=== PATIENT | female | born 1960 | race Caucasian/White ===

== ENCOUNTER → 2016-06-08 17:14 | Outpatient (CLI) | payer BC | END | disposition home or self-care (01) | LOC: D.MAMMO 13:30 | DX: R92.8 Other abnormal and inconclusive findings on diagnostic imaging of breast (principal) ==

== ENCOUNTER 2016-12-07 16:32 | Outpatient (CLI) | payer BC | END 2016-12-07 17:15 | disposition home or self-care (01) | LOC: D.MAMMO 16:32 | DX: Z12.31 Encounter for screening mammogram for malignant neoplasm of breast (principal) ==

== ENCOUNTER 2018-04-16 08:00 | Outpatient (CLI) | payer MEDICAID | END 2018-04-16 19:00 | disposition home or self-care (01) | LOC: D.MAMMO 08:00 | DX: R92.8 Other abnormal and inconclusive findings on diagnostic imaging of breast (principal) ==

== ENCOUNTER → 2018-12-14 13:25 | Outpatient (CLI) | payer BC | END | disposition home or self-care (01) | LOC: D.CT 13:25 | PROVIDERS: ATTEND Emergency Medicine | DX: R05 Cough (principal) ==

== ENCOUNTER → 2018-12-27 07:55 | Outpatient (CLI) | payer BC | END | disposition home or self-care (01) | LOC: D.MRI 07:55 | PROVIDERS: ATTEND Emergency Medicine | DX: K76.9 Liver disease, unspecified (principal) ==

== ENCOUNTER → 2019-01-08 08:32 | Outpatient (CLI) | payer BC | END | disposition home or self-care (01) | LOC: D.MRI 08:32 | PROVIDERS: ATTEND Emergency Medicine | DX: K76.9 Liver disease, unspecified (principal) ==

== ENCOUNTER → 2019-01-24 14:14 | Outpatient (CLI) | payer BC ==
[2019-01-26 09:09] LABS: CEA 1.3 ng/mL (0.0-4.7)
== END | disposition home or self-care (01) ==
LOC: D.LAB 14:14
PROVIDERS: ATTEND Radiology Diagnostic Radiology
DX: R16.0 Hepatomegaly, not elsewhere classified (principal)

== ENCOUNTER → 2019-04-16 08:30 | Outpatient (CLI) | payer BC | END | disposition home or self-care (01) | LOC: D.CT 08:30 | PROVIDERS: ATTEND Radiology Diagnostic Radiology | DX: K76.9 Liver disease, unspecified (principal) ==

== ENCOUNTER → 2019-09-26 08:03 | Outpatient (CLI) | payer BC | END | disposition home or self-care (01) | LOC: D.CT 08:03 | PROVIDERS: ATTEND Radiology Diagnostic Radiology | DX: K76.9 Liver disease, unspecified (principal) ==

== ENCOUNTER 2020-01-03 11:30 | Outpatient (CLI) | payer BC | END 2020-01-03 13:01 | disposition home or self-care (01) | LOC: D.MAMMO 11:30 | PROVIDERS: ATTEND Emergency Medicine | DX: Z12.31 Encounter for screening mammogram for malignant neoplasm of breast (principal) ==

== ENCOUNTER → 2020-08-14 11:19 | Outpatient (CLI) | payer BC | END | disposition home or self-care (01) | LOC: D.CT 11:19 | PROVIDERS: ATTEND Radiology Diagnostic Radiology | DX: K76.89 Other specified diseases of liver (principal) ==